=== PATIENT | female | born 1945 | race Caucasian/White ===

== ENCOUNTER 2018-11-16 14:38 | Emergency (ER) | payer MEDICARE, OTHER ==
[~2018-11-16] VITALS: Ht 152.4 cm; Wt 63.6 kg
[2018-11-16] MEDS ORDERED: LIDOcaine 1% w/epiNEPHrine 1:200,000 30ml vial IM ONE (15:40)
[2018-11-16] MEDS ORDERED: TETanus/Pertussis (Acell)/Diphther VAC/PF (Tdap-Adult) 0.5ml syringe IM ONE (15:40)
[2018-11-16] MEDS ORDERED: AMOX-580 PO (15:41)
[2018-11-16 16:30] VITALS: BP 142/80
== END 2018-11-16 16:35 | disposition home or self-care (01) ==
LOC: ER 14:38
DX: S61.216A Laceration without foreign body of right little finger without damage to nail, initial encounter (principal); W54.0XXA Bitten by dog, initial encounter; Y93.89 Activity, other specified; Y92.89 Other specified places as the place of occurrence of the external cause; Y99.9 Unspecified external cause status
CPT/HCPCS: 12002; 90471; 90715; 99283; J3490